=== PATIENT | male | born 1975 | race Caucasian/White ===

== ENCOUNTER 2020-06-19 11:01 | Emergency (ER) | payer MEDICARE ==
[2020-06-19] MEDS ORDERED: DECADRON6 MG PO (12:58)
== END 2020-06-19 13:15 | disposition home or self-care (01) ==
LOC: ER1 11:01
DX: U07.1 COVID-19 (principal); I10 Essential (primary) hypertension; F17.200 Nicotine dependence, unspecified, uncomplicated; Z91.018 Allergy to other foods
CPT/HCPCS: 71045; 96372; 99285; J1100